=== PATIENT | female | born 1960 | race Caucasian/White ===

== ENCOUNTER → 2018-07-12 | Outpatient (CLI) | payer OTHER ==
[~2018-07-12] MED LIST: CALCIUM PO; FIBER PO; LEVOTHYROXINE50 MCG PO; PANTOPRAZOLE SO40 MG PO; TURMERIC PO; Z.0.ATENOLOL25 MG PO; Z.0.FUROSEMIDE40 MG PO; Z.0.MAGNESIUM500 MG PO; Z.0.OMEPRAZOLE40 MG PO; Z.0.ZANTAC150 MG PO; [UNRECOGNIZED DRUG - CODE] PO
--- NOTE | 2018-07-12 18:07 | Diagnostic Imaging Report ---
EXAM: CHEST 2 VIEWS, PA and lateral DATE: 07/12/2018 Time stamp on exam: 2:59 PM INDICATION: Cough COMPARISON: None FINDINGS: LINES/TUBES: None LUNGS: No consolidations or edema. PLEURA: No effusions or pneumothorax. HEART AND MEDIASTINUM: Normal size and contour. BONES AND SOFT TISSUES: Mild thoracic spine scoliosis. IMPRESSION: No acute thoracic abnormality. Signed by: Dr. Dennis Sanders DO on 07/12/2018 6:04 PM
== END ==
LOC: RAD 14:37
PROVIDERS: ATTEND Internal Medicine
DX: R05 Cough (principal)
CPT/HCPCS: 71046

== ENCOUNTER 2021-05-15 09:46 | Emergency (ER) | payer BC, OTHER ==
[~2021-05-15] VITALS: Ht 162.6 cm; Wt 80.8 kg
[2021-05-15] MEDS ORDERED: PROPRANOLOL HCL40 MG PO (10:10)
[2021-05-15] MEDS ORDERED: ALBUTEROL SULF 0.083% NEB SOLN 3 ML NEB NEB STA (10:14)
[2021-05-15] MEDS ORDERED: IBUPROFEN 600 MG TAB PO STA (10:19)
[2021-05-15] MEDS ORDERED: IBUPROFEN 600 MG TAB ONE (10:34)
[2021-05-15] MEDS ORDERED: ALBUTEROL SULF 0.083% NEB SOLN 3 ML NEB ONE (10:35)
[2021-05-15] MEDS ORDERED: CEFTRIAXONE 1 GM VIAL IM ONE (11:15)
[2021-05-15] MEDS ORDERED: PROAIR HFA INH8.5 GM INH (11:22)
[2021-05-15] MEDS ORDERED: GUAIFENESIN-CO118 M1 PO (11:22)
[2021-05-15] MEDS ORDERED: CEFDINIR300 MG PO (11:22)
[2021-05-15] MEDS ORDERED: GUAIFEN-CODEINE5 ML PO (11:28)
[2021-05-15] MEDS ORDERED: LIDOCAINE HCL 1% LOCAL INJ 20 ML VIAL ONE (11:34)
[2021-05-15] MEDS ORDERED: CEFTRIAXONE 1 GM VIAL ONE (11:34)
== END 2021-05-15 11:39 | disposition home or self-care (01) ==
LOC: FSED 10:14
DX: J20.9 Acute bronchitis, unspecified (principal); R05.9 Cough, unspecified; R50.9 Fever, unspecified; I10 Essential (primary) hypertension; K21.9 Gastro-esophageal reflux disease without esophagitis
CPT/HCPCS: 71045; 87400; 96372; 99283; J0696; J2001

== ENCOUNTER → 2022-01-09 | Outpatient (CLI) | payer OTHER ==
[~2022-01-09] MED LIST changes: +CEFDINIR300 MG PO; +GUAIFEN-CODEINE5 ML PO; +GUAIFENESIN-CO118 M1 PO; +PROAIR HFA INH8.5 GM INH; +PROPRANOLOL HCL40 MG PO
== END ==
LOC: RAD 13:17
PROVIDERS: ATTEND Internal Medicine
DX: J20.9 Acute bronchitis, unspecified (principal)
CPT/HCPCS: 71046